=== PATIENT | female | born 1955 | race Caucasian/White ===

== ENCOUNTER 2016-12-29 13:20 | Outpatient (CLI) | payer BC | END 2016-12-29 13:21 | disposition home or self-care (01) | DX: Z12.31 Encounter for screening mammogram for malignant neoplasm of breast (principal) ==

== ENCOUNTER 2019-04-26 17:06 | Emergency (ER) | payer BC, MEDICARE ==
[2019-04-26 17:30] LABS: BILIRUBIN,URINE NEGATIVE (NEGATIVE); GLUCOSE, URINE (UA) NEGATIVE (NEGATIVE); KETONES,URINE (UA) TRACE mg/dL (NEGATIVE); LEUKOCYTE ESTERASE, URINE LARGE (NEGATIVE); NITRITE,URINE NEGATIVE (NEGATIVE); OCCULT BLOOD,URINE MODERATE (NEGATIVE); PROTEIN,URINE 30 mg/dL (NEGATIVE); UROBILINOGEN,URINE 0.2 (NORMAL) E.U./dL (NORMAL)
[2019-04-26 17:40] LABS: CLARITY,URINE CLOUDY (CLEAR)
[2019-04-26 17:53] LABS: BACTERIA,URINE None Seen /HPF (None Seen); RBC,URINE 0-5 /HPF (0-5); SQUAMOUS EPITHELIAL CELL,UR NONE SEEN (<= Few); WBC CLUMPS,URINE PRESENT
--- NOTE | 2019-04-26 20:27 | ED Physician Documentation ---
PD HPI FEMALE - Stated complaint Stated Complaint: FEM - Chief complaint Chief Complaint: UTI - History obtained from History obtained from: Patient - History of Present Illness Timing - onset: How many weeks ago (1) Timing - duration: Weeks (1) Timing - details: Gradual onset, Waxing and waning Associated symptoms: Dysuria, Urinary frequency. No: Fever, Vaginal discharge, Genital sore/lesion Similar symptoms before: Diagnosis (UTIs) Review of Systems Constitutional: denies: Fever, Chills, Myalgias Nose: denies: Rhinorrhea / runny nose, Congestion Throat: denies: Sore throat Respiratory: denies: Cough GI: reports: Nausea. denies: Abdominal Pain, Vomiting, Diarrhea : reports: Dysuria, Frequency. denies: Discharge Skin: denies: Rash PD PAST MEDICAL HISTORY - Past Medical History Past Medical History: Yes Cardiovascular: High cholesterol - Past Surgical History Past Surgical History: No - Present Medications Home Medications: Ambulatory Orders Medication Instructions Recorded Confirmed Sulfamethox/Trimeth 800/160 1 each PO BID #14 tablet 04/26/19 [Bactrim Ds 800/160] - Allergies Allergies/Adverse Reactions: Allergies Allergy/AdvReac Type Severity Reaction Status Date / Time Penicillins Allergy Rash Verified 04/26/19 17:16 tetanus and diphtheria Allergy Hives Verified 04/26/19 17:16 toxoids - Social History Does the pt smoke?: No Smoking Status: Never smoker Does the pt drink ETOH?: Yes ETOH Use: Wine Does the pt have substance abuse?: No - Immunizations Immunizations are current?: No Immunizations: Other immun not current - POLST Patient has POLST: No PD ED PE NORMAL - Vitals Vital signs reviewed: Yes - General General: Alert and oriented X 3, Well developed/nourished - Abdomen Abdomen: Soft, Non tender - Back Back: No CVA TTP - Derm Derm: Normal color, Warm and dry Results - Vitals Vitals: Oxygen O2 Source Room air - Labs Labs: Microbiology 04/26/19 17:24 Urine Culture - Preliminary Urine,Clean Catch Escherichia Coli Laboratory Tests 04/26/19 17:24 Urine Color YELLOW Urine Clarity CLOUDY Urine pH 6.0 Ur Specific [place] <=1.005 Urine Protein 30 H Urine Glucose (UA) NEGATIVE Urine Ketones TRACE Urine Occult Blood MODERATE H Urine Nitrite NEGATIVE Urine Bilirubin NEGATIVE Urine Urobilinogen 0.2 (NORMAL) Ur Leukocyte Esterase LARGE H Urine RBC 0-5 Urine WBC >25 H Urine WBC Clumps PRESENT Ur Squamous Epith Cells NONE SEEN Urine Bacteria None Seen Ur Microscopic Review INDICATED Urine Culture Comments INDICATED PD MEDICAL DECISION MAKING - ED course Complexity details: reviewed results, considered differential, d/w patient Departure - Departure Disposition: Home, Self Care Clinical Impression: Urinary tract infection Qualifiers: Urinary tract infection type: acute cystitis Hematuria presence: without hematuria Qualified Code(s): N30.00 - Acute cystitis without hematuria Condition: Stable Record reviewed to determine appropriate education?: Yes Instructions: ED UTI Cystitis Female Follow-Up: [facility] [Provider Group] Prescriptions: Sulfamethox/Trimeth 800/160 [Bactrim Ds 800/160] 1 each PO BID #14 tablet Comments: Stay well-hydrated. Bactrim twice daily for a week for the infection. You could follow-up with gynecology regarding evaluation if you do have a dropped bladder given your other symptoms you have had. Recheck if not improved over the next few days. Discharge Date/Time: 04/26/19 20:55
[2019-04-26] MEDS ORDERED: SULFAMETH/TRIMETH DS 800/160 MG TABLET PO STA (20:44)
[2019-04-26 20:57] VITALS: BP 146/86
== END 2019-04-26 20:55 | disposition home or self-care (01) ==
LOC: ED 17:06
DX: N30.00 Acute cystitis without hematuria (principal); Z88.0 Allergy status to penicillin
CPT/HCPCS: 81001; 87086; 87181; 99283; A9270; 81003

== ENCOUNTER 2020-01-22 15:55 | Outpatient (CLI) | payer MEDICARE, OTHER | END 2020-01-22 15:56 | disposition home or self-care (01) | LOC: COV 15:55 | PROVIDERS: ATTEND Family Medicine | DX: R05 Cough (principal); M79.10 Myalgia, unspecified site; R53.83 Other fatigue; J02.9 Acute pharyngitis, unspecified | CPT/HCPCS: 81599 ==

== ENCOUNTER 2021-09-08 13:51 | Outpatient (CLI) | payer MEDICARE ==
--- NOTE | 2021-09-09 13:37 | Mammography Report ---
BILATERAL DIGITAL SCREENING MAMMOGRAM 3D/2D: 09/08/2021 CLINICAL: Routine screening. Comparison is made to exams dated: 12/29/2016 mammogram, 09/07/2012 mammogram, and 12/28/2007 mammogram - [facility]. The tissue of both breasts is predominantly fatty. No significant masses, calcifications, or other findings are seen in either breast. There has been no significant interval change. IMPRESSION: NEGATIVE There is no mammographic evidence of malignancy. A 1 year screening mammogram is recommended. This exam was interpreted at Station ID: [id number]. NOTE: For mammograms, a report in lay terms will be sent to the patient. Approximately 15% of breast malignancies will not be visualized mammographically. In the management of a palpable breast mass, a negative mammogram must not discourage biopsy of a clinically suspicious lesion. Electronically Signed By: Homero Saul M.D., [email or web address]:09/08/2021 16:09:17 ACR BI-RADS Category 1: Negative 3341F PARENCHYMAL PATTERN: (F) - The breast(s) demonstrate(s) diffuse fatty replacement. BI-RADS CATEGORY: (1) - 1 RECOMMENDATION: (ANNUAL) - Recommend routine annual screening mammography. [id number] 1 year screening LATERALITY: (B)
== END 2021-09-08 13:52 | disposition home or self-care (01) ==
LOC: DI 13:51
PROVIDERS: ATTEND Physician Assistant
DX: Z12.31 Encounter for screening mammogram for malignant neoplasm of breast (principal)

== ENCOUNTER 2021-09-08 14:10 | Outpatient (CLI) | payer MEDICARE ==
--- NOTE | 2021-09-08 16:18 | DEXA Report ---
PROCEDURE: Dexa Spine and/or Hip INDICATIONS: POST MENOPAUSAL TECHNIQUE: Dual energy x-ray absorptiometry (DXA) was performed on a [employer] System. Regions measur ed are the AP Spine, femoral neck, and if needed forearm. COMPARISON: None. FINDINGS: Lumbar Spine: Bone Mineral Density 0.977 g/cm/cm,T score -1.7. Left Hip: Bone Mineral Density 0.723 g/cm/cm,T score -2.3 Left Femoral Neck: Bone Mineral Density 0.684 g/cm/cm, T score -2.5. (T score greater or equal to -1.0: NORMAL) (T score from -1.1 to -2.4: OSTEOPENIA) (T score less than or equal to -2.5 to: OSTEOPOROSIS) Impression: Osteoporosis. Patients with diagnosis of osteoporosis or osteopenia should have regular bone mineral density assess ment. For those eligible for Medicare, routine testing is allowed once every 2 years. Testing frequ ency can be increased for patients who have rapidly progressing disease or for those who are receivin g medical therapy to restore bone mass. Reviewed by: Lauro Cardona MD on 09/08/2021 4:17 PM PST Approved by: Lauro Cardona MD on 09/08/2021 4:17 PM PST Station ID: [id number]
== END 2021-09-08 14:11 | disposition home or self-care (01) ==
LOC: DI 14:10
PROVIDERS: ATTEND Physician Assistant
DX: Z13.820 Encounter for screening for osteoporosis (principal); Z78.0 Asymptomatic menopausal state; N95.8 Other specified menopausal and perimenopausal disorders; M81.0 Age-related osteoporosis without current pathological fracture

== ENCOUNTER 2024-03-29 10:22 | Outpatient (CLI) | payer MEDICARE ==
--- NOTE | 2024-03-29 12:02 | XRAY Report ---
PROCEDURE: Hip w/Pelvis 2-3V LT INDICATIONS: L HIP PAIN TECHNIQUE: 2 views of the hip were acquired. COMPARISON: None. FINDINGS: Bones: No fractures or dislocations. No suspicious bony lesions. Mild bilateral degenerative hip joint space narrowing slightly more prominent on left. No erosions. Soft tissues: No suspicious soft tissue calcifications or masses. IMPRESSION: Mild bilateral hip arthritic change. Reviewed by: Michelle Holder MD on 03/29/2024 12:01 PM PDT Approved by: Michelle Holder MD on 03/29/2024 12:01 PM PDT Station ID: [id number]
== END 2024-03-29 10:23 | disposition home or self-care (01) ==
LOC: DI.S 10:22
PROVIDERS: ATTEND Physician Assistant
DX: M16.0 Bilateral primary osteoarthritis of hip (principal)

== ENCOUNTER 2024-05-02 10:17 | Outpatient (CLI) | payer MEDICARE ==
--- NOTE | 2024-05-03 10:52 | Mammography Report ---
BILATERAL DIGITAL SCREENING MAMMOGRAM 3D/2D WITH EXAGGERATED CC: 05/02/2024 CLINICAL: Routine screening. Comparison is made to exams dated: 09/08/2021 mammogram and 12/29/2016 mammogram - [facility]. There are scattered areas of fibroglandular density in both breasts (category b / 25%-50% glandular t issue). No significant masses, calcifications, or other findings are seen in either breast. There has been no significant interval change. IMPRESSION: NEGATIVE There is no mammographic evidence of malignancy. A 1 year screening mammogram is recommended. Based on the Tyrer Cuzick model (a risk assessment model) the patient's lifetime risk is 4.2% and her 10 year risk is 2.4%. According to the ACR, ACS, and NCCN guidelines, an annual breast MRI exam dak[place] g with mammogram is recommended if the patient's lifetime risk is 20% or greater. This exam was interpreted at Station ID: [id number]. NOTE: For mammograms, a report in lay terms will be sent to the patient. Approximately 15% of breast malignancies will not be visualized mammographically. In the management of a palpable breast mass, a negative mammogram must not discourage biopsy of a clinically suspicious lesion. Electronically Signed By: James sánchez/melita:05/02/2024 18:32:02 letter sent: No_Letter ACR BI-RADS Category 1: Negative 3341F PARENCHYMAL PATTERN: (A) - The breast(s) demonstrate(s) scattered fibroglandular densities. BI-RADS CATEGORY: (1) - 1 RECOMMENDATION: (ANNUAL) - Recommend routine annual screening mammography. [id number] 1 year screening LATERALITY: (B)
== END 2024-05-02 10:18 | disposition home or self-care (01) ==
LOC: DI 10:17
PROVIDERS: ATTEND Physician Assistant
DX: Z12.31 Encounter for screening mammogram for malignant neoplasm of breast (principal); R92.323 Mammographic fibroglandular density, bilateral breasts

== ENCOUNTER 2024-05-02 10:18 | Outpatient (CLI) | payer MEDICARE ==
--- NOTE | 2024-05-02 14:36 | DEXA Report ---
PROCEDURE: Dexa Spine and/or Hip INDICATIONS: OSTEOPOROSIS TECHNIQUE: Dual energy x-ray absorptiometry (DXA) was performed on a [employer] System. Regions measur ed are the AP Spine, femoral neck, and if needed forearm. COMPARISON: 09/08/2021 FINDINGS: Lumbar Spine: Bone Mineral Density: 1.052 g/cm/cm,T score: -1.1. Since the most recent prior study, there has been a statistically significant increase in bone mineral density by 7.7 percent. Left Femoral Neck: Bone Mineral Density: 0.687 g/cm/cm, T score: -2.5. Left Hip: Bone Mineral Density: 0.764 g/cm/cm,T score: -1.9. Since the most recent prior study, there has been a statistically significant increase in bone mineral density by 5.7 percent. FRAX risk factors: None given. (T score greater or equal to -1.0: NORMAL) (T score from -1.1 to -2.4: OSTEOPENIA) (T score less than or equal to -2.5 to: OSTEOPOROSIS) Impression: By WHO criteria, this patient has osteoporosis. Interval statistical increase in bone mineral density of the lumbar spine. Interval statistical incre ase in bone mineral density of the hip. Patients with diagnosis of osteoporosis or osteopenia should have regular bone mineral density assess ment. For those eligible for Medicare, routine testing is allowed once every 2 years. Testing frequ ency can be increased for patients who have rapidly progressing disease or for those who are receivin g medical therapy to restore bone mass. Reviewed by: Toy Mclain MD on 05/02/2024 2:35 PM PDT Approved by: Toy Mclain MD on 05/02/2024 2:35 PM PDT Station ID: [id number]
== END 2024-05-02 10:19 | disposition home or self-care (01) ==
LOC: DI 10:18
PROVIDERS: ATTEND Physician Assistant
DX: M81.0 Age-related osteoporosis without current pathological fracture (principal)

== ENCOUNTER 2024-05-02 10:20 | Outpatient (CLI) | payer MEDICARE ==
--- NOTE | 2024-05-02 15:33 | XRAY Report ---
PROCEDURE: Wrist 3+V LT INDICATIONS: L WRIST PAIN TECHNIQUE: 3 views of the wrist were acquired. COMPARISON: None. FINDINGS: Bones: No fractures or dislocations. No suspicious bony lesions. Radiocarpal joint space narrowin g. Soft tissues: No suspicious soft tissue calcifications or masses. IMPRESSION: No acute bony abnormality. Mild radiocarpal osteoarthritis. Reviewed by: Tal Kidd MD on 05/02/2024 3:31 PM PDT Approved by: Tal Kidd MD on 05/02/2024 3:31 PM PDT Station ID: [id number]
--- NOTE | 2024-05-02 21:54 | XRAY Report ---
PROCEDURE: Shoulder 2+V LT INDICATIONS: L SHOULDER TECHNIQUE: 3 views of the shoulder were acquired. COMPARISON: None. FINDINGS: Bones: No fractures or dislocations. No suspicious bony lesions. Mild AC joint degeneration. Visua lized ribs appear intact. Soft tissues: No suspicious soft tissue calcifications. The visualized lungs are within normal limi ts. IMPRESSION: Mild AC joint degeneration. Reviewed by: Khloe Kat MD on 05/02/2024 9:53 PM PDT Approved by: Khloe Kat MD on 05/02/2024 9:53 PM PDT Station ID: [id number]
--- NOTE | 2024-05-02 21:54 | XRAY Report ---
PROCEDURE: Cervical Spine 2-3V INDICATIONS: NECK PAIN TECHNIQUE: 3 view(s) of the cervical spine were acquired. COMPARISON: None. FINDINGS: Bones: No fractures or dislocations to the T1 level. Trace anterolisthesis of C4-5 and straightenin g of the lower cervical lordosis. Trace anterolisthesis of C7-T1. Mild disc height loss at C5-6 and C 6-7. Suboptimal odontoid view. Grossly intact craniocervical junction. No suspicious bony lesions. Soft tissues: No prevertebral soft tissue swelling. IMPRESSION: No acute fracture or traumatic subluxation. Mild degenerative disc and endplate changes. Reviewed by: Khloe Kat MD on 05/02/2024 9:52 PM PDT Approved by: Khloe Kat MD on 05/02/2024 9:52 PM PDT Station ID: [id number]
== END 2024-05-02 10:21 | disposition home or self-care (01) ==
LOC: DI 10:20
PROVIDERS: ATTEND Physician Assistant
DX: M19.012 Primary osteoarthritis, left shoulder (principal); M50.321 Other cervical disc degeneration at C4-C5 level; M19.032 Primary osteoarthritis, left wrist; M81.0 Age-related osteoporosis without current pathological fracture